=== PATIENT | female | born 1955 | race Caucasian/White ===

== ENCOUNTER 2018-03-23 10:25 | Inpatient (IN) | payer OTHER, BC ==
[2018-03-23] MEDS: NS 1,000 ML IV ×3 (11:09→23:00)
[2018-03-23] MEDS: MORPHINE 4 MG/ML 1ML VIAL/SYRINGE (J2270) IV ×3 (11:33→22:04)
[2018-03-23 12:14] LABS: INR 0.93; PROTHROMBIN TIME 12.5 SECONDS (12.4-14.5)
[2018-03-23 12:36] LABS: BASO % 0.2 % (0.0-1.0); EOS % 0.1 % (0.0-3.0); HEMATOCRIT 34.8 % (36.0-47.0); HEMOGLOBIN 11.2 g/dl (12.0-15.5); IMMATURE GRANULOCYTE % 0.6 % (0-3.0); LYMPH # 1.1 10^3/uL (1.5-4.5); LYMPH % 8.3 % (24.0-44.0); MEAN CORPUSCULAR HEMOGLOBIN 30.7 pg (27.0-33.0); MEAN CORPUSCULAR HGB CONC 32.2 g/dl (32.0-36.5); MEAN CORPUSCULAR VOLUME 95.3 fl (80.0-96.0); MONO # 0.8 10^3/uL (0.0-0.8); MONO % 6.1 % (0.0-5.0); NEUTROPHILS # 10.8 10^3/uL (1.8-7.7); NEUTROPHILS % 84.7 % (36.0-66.0); PLATELET COUNT, AUTOMATED 224 10^3/uL (150-450); RED BLOOD COUNT 3.65 10^6/uL (4.00-5.40); RED CELL DISTRIBUTION WIDTH 12.9 % (11.5-14.5); WHITE BLOOD COUNT 12.7 10^3/uL (4.0-10.0)
[2018-03-23] MEDS ORDERED: ISOVUE-370 76% 100ML VIAL (Q9967) As Ordered (12:38)
[2018-03-23] MEDS: fentaNYL 100 MCG/2 ML INJECTION (J3010) IV ×6 (12:40→20:10)
[2018-03-23 12:56] LABS: ALBUMIN 3.8 GM/DL (3.2-5.2); ALBUMIN/GLOBULIN RATIO 1.31 (1.00-1.93); ALKALINE PHOSPHATASE 108 U/L (45-117); ALT/SGPT 40 U/L (12-78); ANION GAP 9 MEQ/L (8-16); AST/SGOT 70 U/L (7-37); BILIRUBIN,DIRECT 0.2 MG/DL (0.0-0.2); BILIRUBIN,TOTAL 0.6 MG/DL (0.2-1.0); BLOOD UREA NITROGEN 17 MG/DL (7-18); CALCIUM LEVEL 8.8 MG/DL (8.8-10.2); CARBON DIOXIDE LEVEL 23 MEQ/L (21-32); CHLORIDE LEVEL 111 MEQ/L (98-107); CREATININE FOR GFR 0.78 MG/DL (0.55-1.30); GLOMERULAR FILTRATION RATE > 60.0 (>45); GLUCOSE, FASTING 96 MG/DL (70-100); POTASSIUM SERUM 4.7 MEQ/L (3.5-5.1); SODIUM LEVEL 143 MEQ/L (136-145); TOTAL PROTEIN 6.7 GM/DL (6.4-8.2)
[2018-03-23 14:58] LABS: TROPONIN I 0.04 NG/ML (< 0.10)
[2018-03-23 15:14] LABS: CK-MB VALUE MASS 7.8 NG/ML (<3.6); CPK CREATINE PHOSPHOKINASE 441 U/L (26-192); MB/CK RELATIVE INDEX 1.76 (< OR =4)
[2018-03-23] MEDS ORDERED: PERCOCET 5MG/325MG TAB PO ×3 (15:45→20:52)
[2018-03-23] MEDS ORDERED: LR 1,000 ML IV (15:45)
[2018-03-23] MEDS ORDERED: MIRALAX *UNIT DOSE* 17GM PACKET PO (15:45)
[2018-03-23] MEDS: CARVedilol 3.125 MG TAB PO ×2 (16:00→23:01)
[2018-03-23] MEDS: ceFAZolin 2 GM/D5W 50 ML IV BAG (J0690 PER 500MG) As Ordered (16:54)
[2018-03-23] MEDS ORDERED: MIDAZOLAM INJ 2 MG/2 ML VIAL (J2250) As Ordered ×2 (18:27→19:12)
[2018-03-23] MEDS ORDERED: KETAMINE HCL 200 MG/20 ML VIAL As Ordered (19:12)
[2018-03-23] MEDS ORDERED: fentaNYL 100 MCG/2 ML INJECTION (J3010) As Ordered ×3 (19:12→19:56)
[2018-03-23] MEDS ORDERED: PROPOFOL 200 MG/20 ML VIAL As Ordered (19:12)
[2018-03-23] MEDS ORDERED: LIDOCAINE 2% INJ 100 MG/5 ML SDV (FOR ANES.) As Ordered (19:12)
[2018-03-23] MEDS ORDERED: PHENYLephrine HCL 500 MCG/5 ML (100MCG/ML) SYRINGE (J2370) As Ordered (19:13)
[2018-03-23] MEDS ORDERED: PHENYLEPHRINE INJ 10MG/ML VIAL (J2370) As Ordered (19:13)
[2018-03-23] MEDS ORDERED: ePHEDrine SULFATE 25 MG/5 ML(5MG/ML) SYRINGE As Ordered (19:13)
[2018-03-23] MEDS: ONDANSETRON 4MG/2ML VIAL (J2405) IV (19:55)
[2018-03-23] MEDS: PERCOCET 5MG/325MG TAB PO ×2 (19:55→20:25)
[2018-03-23] MEDS ORDERED: ONDANSETRON 4MG/2ML VIAL (J2405) As Ordered (19:56)
[2018-03-23] MEDS ORDERED: PERCOCET 5MG/325MG TAB As Ordered ×2 (19:56→20:25)
[2018-03-23] MEDS: LR 1,000 ML IV (21:00)
[2018-03-23] MEDS ORDERED: METOCLOPRAMIDE INJ 10MG/2ML VIAL (J2765) IV (21:00)
[2018-03-24] MEDS: ceFAZolin SOD 1 GM in D5W MINI-BAG PLUS 50 ML IV ×2 (00:15→08:41)
[2018-03-24] MEDS: MORPHINE 4 MG/ML 1ML VIAL/SYRINGE (J2270) IV ×5 (00:16→15:51)
[2018-03-24] MEDS: LEVOTHYROXINE 75MCG TABLET (0.075MG) PO (05:35)
[2018-03-24] MEDS: PERCOCET 5MG/325MG TAB PO ×3 (06:12→21:05)
[2018-03-24 06:34] LABS: BASO % 0.4 % (0.0-1.0); EOS % 0.2 % (0.0-3.0); HEMATOCRIT 31.4 % (36.0-47.0); HEMOGLOBIN 10.1 g/dl (12.0-15.5); IMMATURE GRANULOCYTE % 0.4 % (0-3.0); LYMPH # 0.8 10^3/uL (1.5-4.5); LYMPH % 15.8 % (24.0-44.0); MEAN CORPUSCULAR HEMOGLOBIN 31.3 pg (27.0-33.0); MEAN CORPUSCULAR HGB CONC 32.2 g/dl (32.0-36.5); MEAN CORPUSCULAR VOLUME 97.2 fl (80.0-96.0); MONO # 0.6 10^3/uL (0.0-0.8); MONO % 11.2 % (0.0-5.0); NEUTROPHILS # 3.8 10^3/uL (1.8-7.7); RED BLOOD COUNT 3.23 10^6/uL (4.00-5.40); WHITE BLOOD COUNT 5.3 10^3/uL (4.0-10.0)
[2018-03-24 06:55] LABS: ANION GAP 7 MEQ/L (8-16); BLOOD UREA NITROGEN 9 MG/DL (7-18); CALCIUM LEVEL 8.3 MG/DL (8.8-10.2); CARBON DIOXIDE LEVEL 26 MEQ/L (21-32); CHLORIDE LEVEL 109 MEQ/L (98-107); CHOLESTEROL LEVEL 173 MG/DL (<200); CHOLESTEROL RISK RATIO 2.246 (<5); CREATININE FOR GFR 0.68 MG/DL (0.55-1.30); GLOMERULAR FILTRATION RATE > 60.0 (>45); GLUCOSE, FASTING 96 MG/DL (70-100); HDL CHOLESTEROL 77 MG/DL (>40); LDL CHOLESTEROL 59.2 MG/DL (<100); MAGNESIUM LEVEL 1.8 MG/DL (1.8-2.4); NON-HDL-C 96 MG/DL; POS COUNT POS FLAG; POTASSIUM SERUM 4.2 MEQ/L (3.5-5.1); SODIUM LEVEL 142 MEQ/L (136-145); TRIGLYCERIDES LEVEL 184 MG/DL (<150)
[2018-03-24] MEDS: ENOXAPARIN 40 MG/0.4 ML SYRINGE (J1650) SC (08:41)
[2018-03-24] MEDS: ALLOPURINOL 300 MG TAB PO (08:41)
[2018-03-24] MEDS: LISINOPRIL 20 MG TAB PO (08:42)
[2018-03-24] MEDS: CARVedilol 3.125 MG TAB PO ×2 (08:42→21:03)
[2018-03-24] MEDS: KETOROLAC 30 MG/ML VIAL (J1885) IV ×2 (09:57→17:17)
[2018-03-24] MEDS: METHOCARBAMOL 750 MG TAB PO ×2 (11:50→21:03)
[2018-03-24] MEDS: NS 1,000 ML IV (11:50)
[2018-03-24] MEDS: SENOKOT S TAB PO (12:19)
[2018-03-24 18:40] LABS: KETONE, URINE AUTO RFX 1+ mg/dL (NEGATIVE); LEUKOCYTE ESTERASE UR AUTO RFX NEGATIVE (NEGATIVE); MUCUS, URINE RFX SMALL (NEGATIVE); NITRITE, URINE AUTO RFX NEGATIVE (NEGATIVE); RBC, URINE AUTO RFX 2 /HPF (0-3); SPECIFIC GRAVITY UR AUTO RFX 1.013 (1.002-1.035); SQUAM EPITHELIAL CELL UR AURFX 0 /HPF (0-6); WBC, URINE AUTO RFX 1 /HPF (0-3)
[2018-03-25] MEDS: NS 1,000 ML IV (01:22)
[2018-03-25] MEDS: KETOROLAC 30 MG/ML VIAL (J1885) IV ×2 (02:26→11:11)
[2018-03-25] MEDS: LEVOTHYROXINE 75MCG TABLET (0.075MG) PO (05:42)
[2018-03-25] MEDS: PERCOCET 5MG/325MG TAB PO (06:46)
[2018-03-25] MEDS: ENOXAPARIN 40 MG/0.4 ML SYRINGE (J1650) SC (08:31)
[2018-03-25] MEDS: ALLOPURINOL 300 MG TAB PO (08:31)
[2018-03-25] MEDS: CARVedilol 3.125 MG TAB PO ×2 (08:31→21:59)
[2018-03-25] MEDS: LISINOPRIL 20 MG TAB PO (08:31)
[2018-03-25] MEDS: METHOCARBAMOL 750 MG TAB PO ×2 (08:31→21:56)
[2018-03-25 08:33] LABS: HEMATOCRIT 26.5 % (36.0-47.0); HEMOGLOBIN 8.5 g/dl (12.0-15.5); MEAN CORPUSCULAR HGB CONC 32.1 g/dl (32.0-36.5); MEAN CORPUSCULAR VOLUME 96.7 fl (80.0-96.0); PLATELET COUNT, AUTOMATED 139 10^3/uL (150-450); RED BLOOD COUNT 2.74 10^6/uL (4.00-5.40); RED CELL DISTRIBUTION WIDTH 12.9 % (11.5-14.5); WHITE BLOOD COUNT 6.2 10^3/uL (4.0-10.0)
[2018-03-25 08:51] LABS: ANION GAP 9 MEQ/L (8-16); BLOOD UREA NITROGEN 10 MG/DL (7-18); CALCIUM LEVEL 7.3 MG/DL (8.8-10.2); CARBON DIOXIDE LEVEL 23 MEQ/L (21-32); CHLORIDE LEVEL 112 MEQ/L (98-107); GLOMERULAR FILTRATION RATE > 60.0 (>45); GLUCOSE, FASTING 161 MG/DL (70-100); MAGNESIUM LEVEL 1.6 MG/DL (1.8-2.4); POTASSIUM SERUM 3.8 MEQ/L (3.5-5.1); SODIUM LEVEL 144 MEQ/L (136-145)
[2018-03-25] MEDS: MAG SULF 1GM/100ML (MAG RUN) 1 GM in APPROPRIATE DILUENT 1 EA IV (10:41)
[2018-03-25] MEDS: SENOKOT S TAB PO ×2 (11:56→21:56)
[2018-03-25] MEDS: ANEXSIA, NORCO 7.5MG/325MG TABLET(HYDROCODONE/APAP) PO ×2 (13:40→18:58)
[2018-03-25] MEDS: IBUPROFEN 800 MG TAB PO (15:24)
[2018-03-26] MEDS: ANEXSIA, NORCO 7.5MG/325MG TABLET(HYDROCODONE/APAP) PO ×5 (01:20→17:36)
[2018-03-26 05:52] LABS: MEAN CORPUSCULAR HEMOGLOBIN 30.9 pg (27.0-33.0); MEAN CORPUSCULAR VOLUME 96.5 fl (80.0-96.0); PLATELET COUNT, AUTOMATED 148 10^3/uL (150-450); RED BLOOD COUNT 2.59 10^6/uL (4.00-5.40); RED CELL DISTRIBUTION WIDTH 12.9 % (11.5-14.5); WHITE BLOOD COUNT 4.8 10^3/uL (4.0-10.0)
[2018-03-26 06:15] LABS: ANION GAP 5 MEQ/L (8-16); BLOOD UREA NITROGEN 10 MG/DL (7-18); CALCIUM LEVEL 8.2 MG/DL (8.8-10.2); CARBON DIOXIDE LEVEL 27 MEQ/L (21-32); CHLORIDE LEVEL 112 MEQ/L (98-107); GLOMERULAR FILTRATION RATE > 60.0 (>45); GLUCOSE, FASTING 91 MG/DL (70-100); MAGNESIUM LEVEL 2.2 MG/DL (1.8-2.4); SODIUM LEVEL 144 MEQ/L (136-145)
[2018-03-26] MEDS: LEVOTHYROXINE 75MCG TABLET (0.075MG) PO (06:35)
[2018-03-26] MEDS ORDERED: MOM 30ML SUSPENSION UDC PO (08:45)
[2018-03-26] MEDS: SENOKOT S TAB PO ×2 (08:58→21:44)
[2018-03-26] MEDS: METHOCARBAMOL 750 MG TAB PO ×2 (08:58→21:44)
[2018-03-26] MEDS: CARVedilol 3.125 MG TAB PO ×3 (08:59→21:45)
[2018-03-26] MEDS: ALLOPURINOL 300 MG TAB PO (09:00)
[2018-03-26] MEDS: ENOXAPARIN 40 MG/0.4 ML SYRINGE (J1650) SC (09:00)
[2018-03-26] MEDS: LISINOPRIL 20 MG TAB PO (09:03)
[2018-03-26 13:01] LABS: IMMEDIATE SPIN CROSSMATCH 1 2
[2018-03-26 15:46] LABS: INR 0.92; PROTHROMBIN TIME 12.4 SECONDS (12.4-14.5)
[2018-03-26 15:47] LABS: PARTIAL THROMBOPLASTIN TIME 26.9 SECONDS (26.8-37.9)
[2018-03-26 16:03] LABS: ALBUMIN 2.5 GM/DL (3.2-5.2); ALBUMIN/GLOBULIN RATIO 0.83 (1.00-1.93); ALKALINE PHOSPHATASE 73 U/L (45-117); ALT/SGPT 18 U/L (12-78); ANION GAP 7 MEQ/L (8-16); AST/SGOT 21 U/L (7-37); BILIRUBIN,TOTAL 0.3 MG/DL (0.2-1.0); BLOOD UREA NITROGEN 10 MG/DL (7-18); CALCIUM LEVEL 7.7 MG/DL (8.8-10.2); CARBON DIOXIDE LEVEL 27 MEQ/L (21-32); CHLORIDE LEVEL 110 MEQ/L (98-107); CK-MB VALUE MASS < 1.0 NG/ML (<3.6); CPK CREATINE PHOSPHOKINASE 227 U/L (26-192); CREATININE FOR GFR 0.75 MG/DL (0.55-1.30); GLOMERULAR FILTRATION RATE > 60.0 (>45); GLUCOSE, FASTING 139 MG/DL (70-100); MAGNESIUM LEVEL 1.7 MG/DL (1.8-2.4); MB/CK RELATIVE INDEX 0.44 (< OR =4); POTASSIUM SERUM 3.8 MEQ/L (3.5-5.1); SODIUM LEVEL 144 MEQ/L (136-145); TOTAL PROTEIN 5.5 GM/DL (6.4-8.2); TROPONIN I 0.02 NG/ML (< 0.10)
[2018-03-26 18:10] LABS: BASO % 0.2 % (0.0-1.0); EOS % 0.6 % (0.0-3.0); HEMATOCRIT 27.5 % (36.0-47.0); HEMOGLOBIN 9.2 g/dl (12.0-15.5); IMMATURE GRANULOCYTE % 0.2 % (0-3.0); LYMPH # 1.2 10^3/uL (1.5-4.5); LYMPH % 18.1 % (24.0-44.0); MEAN CORPUSCULAR HEMOGLOBIN 31.8 pg (27.0-33.0); MEAN CORPUSCULAR HGB CONC 33.5 g/dl (32.0-36.5); MEAN CORPUSCULAR VOLUME 95.2 fl (80.0-96.0); MONO # 0.6 10^3/uL (0.0-0.8); MONO % 9.3 % (0.0-5.0); NEUTROPHILS # 4.6 10^3/uL (1.8-7.7); NEUTROPHILS % 71.6 % (36.0-66.0); PLATELET COUNT, AUTOMATED 175 10^3/uL (150-450); RED BLOOD COUNT 2.89 10^6/uL (4.00-5.40); RED CELL DISTRIBUTION WIDTH 12.8 % (11.5-14.5); WHITE BLOOD COUNT 6.5 10^3/uL (4.0-10.0)
[2018-03-26] MEDS ORDERED: NORCO, ANEXSIA 5/325MG TABLET (HYDROcodone/ACETAMINOPHEN) PO (18:30)
[2018-03-26] MEDS: MAG SULF 1GM/100ML (MAG RUN) 1 GM in APPROPRIATE DILUENT 1 EA IV (19:40)
[2018-03-26 22:11] LABS: REASON FOR REVIEW ANEMIA / RBC MORPH; SLIDE REVIEW Report; SOURCE PERIPHERAL SMEAR
[2018-03-26 22:33] LABS: CK-MB VALUE MASS < 1.0 NG/ML (<3.6); CPK CREATINE PHOSPHOKINASE 187 U/L (26-192); MB/CK RELATIVE INDEX 0.53 (< OR =4); TROPONIN I 0.03 NG/ML (< 0.10)
[2018-03-27] MEDS: ANEXSIA, NORCO 7.5MG/325MG TABLET(HYDROCODONE/APAP) PO ×5 (01:26→21:12)
[2018-03-27] MEDS: LEVOTHYROXINE 75MCG TABLET (0.075MG) PO (05:42)
[2018-03-27 05:56] LABS: HEMOGLOBIN 8.5 g/dl (12.0-15.5); MEAN CORPUSCULAR HEMOGLOBIN 31.1 pg (27.0-33.0); MEAN CORPUSCULAR HGB CONC 32.7 g/dl (32.0-36.5); MEAN CORPUSCULAR VOLUME 95.2 fl (80.0-96.0); PLATELET COUNT, AUTOMATED 199 10^3/uL (150-450); RED BLOOD COUNT 2.73 10^6/uL (4.00-5.40); RED CELL DISTRIBUTION WIDTH 12.8 % (11.5-14.5); WHITE BLOOD COUNT 5.2 10^3/uL (4.0-10.0)
[2018-03-27 06:17] LABS: ANION GAP 5 MEQ/L (8-16); BLOOD UREA NITROGEN 9 MG/DL (7-18); CALCIUM LEVEL 8.2 MG/DL (8.8-10.2); CARBON DIOXIDE LEVEL 28 MEQ/L (21-32); CHLORIDE LEVEL 112 MEQ/L (98-107); CREATININE FOR GFR 0.67 MG/DL (0.55-1.30); GLOMERULAR FILTRATION RATE > 60.0 (>45); GLUCOSE, FASTING 85 MG/DL (70-100); MAGNESIUM LEVEL 2.1 MG/DL (1.8-2.4); POTASSIUM SERUM 3.8 MEQ/L (3.5-5.1); SODIUM LEVEL 145 MEQ/L (136-145)
[2018-03-27] MEDS: METHOCARBAMOL 750 MG TAB PO ×2 (08:05→21:11)
[2018-03-27] MEDS: ALLOPURINOL 300 MG TAB PO (08:06)
[2018-03-27] MEDS: SENOKOT S TAB PO ×2 (08:07→21:11)
[2018-03-27] MEDS: CARVedilol 3.125 MG TAB PO ×2 (08:07→21:12)
[2018-03-27] MEDS: LISINOPRIL 20 MG TAB PO (08:07)
[2018-03-27] MEDS: ENOXAPARIN 40 MG/0.4 ML SYRINGE (J1650) SC (08:08)
[2018-03-27 13:47] LABS: HEMATOCRIT 27.3 % (36.0-47.0); HEMOGLOBIN 8.9 g/dl (12.0-15.5)
[2018-03-27 17:40] LABS: APPEARANCE, URINE CLEAR (CLEAR); BACTERIA, URINE AUTO NEGATIVE (NEGATIVE); BILIRUBIN, URINE AUTO NEGATIVE (NEGATIVE); BLOOD, URINE BLOOD NEGATIVE (NEGATIVE); COLOR, URINE YELLOW (YELLOW); GLUCOSE, URINE (UA) AUTO NEGATIVE (NEGATIVE); KETONE, URINE AUTO TRACE mg/dL (NEGATIVE); LEUKOCYTE ESTERASE, URINE AUTO NEGATIVE (NEGATIVE); NITRITE, URINE AUTO NEGATIVE (NEGATIVE); PROTEIN, URINE AUTO NEGATIVE (NEGATIVE); RBC, URINE AUTO 0 /HPF (0-3); SPECIFIC GRAVITY URINE AUTO 1.011 (1.002-1.035); SQUAMOUS EPITHELIAL CELL UR AU 0 /HPF (0-6); UROBILINOGEN, URINE AUTO 0.2 mg/dL (0.0-2.0); WBC, URINE AUTO 0 /HPF (0-3)
[2018-03-28] MEDS: ANEXSIA, NORCO 7.5MG/325MG TABLET(HYDROCODONE/APAP) PO ×4 (04:32→22:06)
[2018-03-28] MEDS: LEVOTHYROXINE 75MCG TABLET (0.075MG) PO (05:27)
[2018-03-28 06:14] LABS: HEMATOCRIT 26.2 % (36.0-47.0); HEMOGLOBIN 8.6 g/dl (12.0-15.5); MEAN CORPUSCULAR HEMOGLOBIN 30.9 pg (27.0-33.0); MEAN CORPUSCULAR HGB CONC 32.8 g/dl (32.0-36.5); MEAN CORPUSCULAR VOLUME 94.2 fl (80.0-96.0); PLATELET COUNT, AUTOMATED 220 10^3/uL (150-450); RED BLOOD COUNT 2.78 10^6/uL (4.00-5.40); RED CELL DISTRIBUTION WIDTH 12.7 % (11.5-14.5); WHITE BLOOD COUNT 4.4 10^3/uL (4.0-10.0)
[2018-03-28 06:33] LABS: ANION GAP 5 MEQ/L (8-16); BLOOD UREA NITROGEN 12 MG/DL (7-18); CALCIUM LEVEL 8.2 MG/DL (8.8-10.2); CARBON DIOXIDE LEVEL 29 MEQ/L (21-32); CHLORIDE LEVEL 109 MEQ/L (98-107); GLOMERULAR FILTRATION RATE > 60.0 (>45); GLUCOSE, FASTING 96 MG/DL (70-100); MAGNESIUM LEVEL 1.9 MG/DL (1.8-2.4); POTASSIUM SERUM 3.8 MEQ/L (3.5-5.1); SODIUM LEVEL 143 MEQ/L (136-145)
[2018-03-28] MEDS: ONDANSETRON 4MG/2ML VIAL (J2405) IV (08:21)
[2018-03-28] MEDS: IBUPROFEN 800 MG TAB PO (08:22)
[2018-03-28] MEDS: ALLOPURINOL 300 MG TAB PO (08:27)
[2018-03-28] MEDS: SENOKOT S TAB PO ×2 (08:27→21:32)
[2018-03-28] MEDS: CARVedilol 3.125 MG TAB PO ×2 (08:27→21:32)
[2018-03-28] MEDS: LISINOPRIL 20 MG TAB PO (08:27)
[2018-03-28] MEDS: METHOCARBAMOL 750 MG TAB PO ×2 (08:27→21:31)
[2018-03-28] MEDS: MAGNESIUM CITRATE 300 ML BTL PO (14:07)
[2018-03-29] MEDS: ANEXSIA, NORCO 7.5MG/325MG TABLET(HYDROCODONE/APAP) PO ×2 (04:34→09:04)
[2018-03-29] MEDS: LEVOTHYROXINE 75MCG TABLET (0.075MG) PO (05:56)
[2018-03-29 06:01] LABS: HEMATOCRIT 25.4 % (36.0-47.0); HEMOGLOBIN 8.2 g/dl (12.0-15.5); MEAN CORPUSCULAR HEMOGLOBIN 30.7 pg (27.0-33.0); MEAN CORPUSCULAR HGB CONC 32.3 g/dl (32.0-36.5); MEAN CORPUSCULAR VOLUME 95.1 fl (80.0-96.0); PLATELET COUNT, AUTOMATED 229 10^3/uL (150-450); RED BLOOD COUNT 2.67 10^6/uL (4.00-5.40)
[2018-03-29 06:23] LABS: ANION GAP 6 MEQ/L (8-16); BLOOD UREA NITROGEN 14 MG/DL (7-18); CALCIUM LEVEL 8.2 MG/DL (8.8-10.2); CARBON DIOXIDE LEVEL 28 MEQ/L (21-32); CHLORIDE LEVEL 108 MEQ/L (98-107); CREATININE FOR GFR 0.64 MG/DL (0.55-1.30); GLOMERULAR FILTRATION RATE > 60.0 (>45); GLUCOSE, FASTING 96 MG/DL (70-100); MAGNESIUM LEVEL 2.1 MG/DL (1.8-2.4); POTASSIUM SERUM 4.1 MEQ/L (3.5-5.1); SODIUM LEVEL 142 MEQ/L (136-145)
[2018-03-29] MEDS: SENOKOT S TAB PO (08:59)
[2018-03-29] MEDS: LISINOPRIL 20 MG TAB PO (08:59)
[2018-03-29] MEDS: CARVedilol 3.125 MG TAB PO (09:00)
[2018-03-29] MEDS: ALLOPURINOL 300 MG TAB PO (09:00)
[2018-03-29] MEDS: METHOCARBAMOL 750 MG TAB PO (09:00)
[2018-03-29] MEDS: MAGNESIUM CITRATE 300 ML BTL PO (09:00)
== END 2018-03-29 10:37 | DRG 313 ==
LOC: M ED 10:25 → M ED INP 14:29 → M MSPAV 21:06
PROC: 0SSF04Z Reposition Right Ankle Joint with Internal Fixation Device, Open Approach (ICD-10-PCS; principal; 2018-03-23 16:00)
PROC: 30233N1 Transfusion of Nonautologous Red Blood Cells into Peripheral Vein, Percutaneous Approach (ICD-10-PCS; 2018-03-23 16:42)
DX: S82.451A Displaced comminuted fracture of shaft of right fibula, initial encounter for closed fracture (principal); G93.40 Encephalopathy, unspecified; S22.20XA Unspecified fracture of sternum, initial encounter for closed fracture; D62 Acute posthemorrhagic anemia; S22.42XA Multiple fractures of ribs, left side, initial encounter for closed fracture; S52.571A Other intraarticular fracture of lower end of right radius, initial encounter for closed fracture; E03.9 Hypothyroidism, unspecified; I10 Essential (primary) hypertension; M10.9 Gout, unspecified; Z90.710 Acquired absence of both cervix and uterus; Z98.84 Bariatric surgery status; Z87.891 Personal history of nicotine dependence; Z79.899 Other long term (current) drug therapy; Z90.49 Acquired absence of other specified parts of digestive tract; V49.50XA Passenger injured in collision with unspecified motor vehicles in traffic accident, initial encounter; Y92.410 Unspecified street and highway as the place of occurrence of the external cause; Y93.89 Activity, other specified

== ENCOUNTER 2018-03-29 10:42 | Inpatient (IN) | payer OTHER, MEDICARE, BC ==
[~2018-03-29 10:42] MED LIST: ALLOPURINOL 300 MG TAB PO; ANEXSIA, NORCO 7.5MG/325MG TABLET(HYDROCODONE/APAP) PO; BISACODYL 10 MG SUPP PR; BISACODYL 5 MG TAB PO; ENOXAPARIN 40 MG/0.4 ML SYRINGE (J1650) SC; FERROUS GLUCONATE 324 MG TAB PO; FLEET ENEMA PR; IBUPROFEN 800 MG TAB PO; ISOVUE-370 76% 100ML VIAL (Q9967) As Ordered; LEVOTHYROXINE 75MCG TABLET (0.075MG) PO; LISINOPRIL 20 MG TAB PO; METHOCARBAMOL 750 MG TAB PO; MIRALAX *UNIT DOSE* 17GM PACKET PO; ONDANSETRON 4 MG TAB (S0181) PO; ONDANSETRON 4MG/2ML VIAL (J2405) IM; PANTOPRAZOLE 40MG TAB (PROTONIX) PO; PROHANCE 279.3MG/ML 15ML VIAL (A9576) As Ordered; SENOKOT S TAB PO
[2018-03-29] MEDS ORDERED: BISACODYL 10 MG SUPP PR (12:00)
[2018-03-29] MEDS ORDERED: BISACODYL 5 MG TAB PO (12:00)
[2018-03-29] MEDS ORDERED: ONDANSETRON 4MG/2ML VIAL (J2405) IM (12:15)
[2018-03-29] MEDS ORDERED: ONDANSETRON 4 MG TAB (S0181) PO (12:15)
[2018-03-29] MEDS ORDERED: FLEET ENEMA PR (12:15)
[2018-03-29] MEDS: NORCO, ANEXSIA 5/325MG TABLET (HYDROcodone/ACETAMINOPHEN) PO ×3 (12:16→20:28)
[2018-03-29] MEDS: CARVedilol 3.125 MG TAB PO (20:28)
[2018-03-29] MEDS: SENOKOT S TAB PO (20:28)
[2018-03-29] MEDS: METHOCARBAMOL 750 MG TAB PO (20:28)
[2018-03-30] MEDS: NORCO, ANEXSIA 5/325MG TABLET (HYDROcodone/ACETAMINOPHEN) PO ×5 (00:47→20:55)
[2018-03-30] MEDS: LEVOTHYROXINE 75MCG TABLET (0.075MG) PO (04:41)
[2018-03-30 08:15] LABS: HEMATOCRIT 29.1 % (36.0-47.0); HEMOGLOBIN 9.3 g/dl (12.0-15.5); MEAN CORPUSCULAR HEMOGLOBIN 30.8 pg (27.0-33.0); MEAN CORPUSCULAR VOLUME 96.4 fl (80.0-96.0); PLATELET COUNT, AUTOMATED 308 10^3/uL (150-450); RED BLOOD COUNT 3.02 10^6/uL (4.00-5.40); RED CELL DISTRIBUTION WIDTH 13.1 % (11.5-14.5); WHITE BLOOD COUNT 4.8 10^3/uL (4.0-10.0)
[2018-03-30 08:36] LABS: ALBUMIN 2.7 GM/DL (3.2-5.2); ALBUMIN/GLOBULIN RATIO 0.73 (1.00-1.93); ALKALINE PHOSPHATASE 86 U/L (45-117); ALT/SGPT 34 U/L (12-78); ANION GAP 3 MEQ/L (8-16); AST/SGOT 57 U/L (7-37); BILIRUBIN,TOTAL 0.3 MG/DL (0.2-1.0); BLOOD UREA NITROGEN 12 MG/DL (7-18); CALCIUM LEVEL 8.5 MG/DL (8.8-10.2); CARBON DIOXIDE LEVEL 35 MEQ/L (21-32); CHLORIDE LEVEL 103 MEQ/L (98-107); CREATININE FOR GFR 0.69 MG/DL (0.55-1.30); GLOMERULAR FILTRATION RATE > 60.0 (>45); GLUCOSE, FASTING 95 MG/DL (70-100); POTASSIUM SERUM 3.9 MEQ/L (3.5-5.1); SODIUM LEVEL 141 MEQ/L (136-145); TOTAL PROTEIN 6.4 GM/DL (6.4-8.2)
[2018-03-30] MEDS: PREVNAR 13 VACCINE SYRINGE (CPT CODE:90670) IM (08:36)
[2018-03-30] MEDS: METHOCARBAMOL 750 MG TAB PO ×2 (08:37→20:54)
[2018-03-30] MEDS: CARVedilol 3.125 MG TAB PO ×2 (08:37→20:54)
[2018-03-30] MEDS: FERROUS GLUCONATE 324 MG TAB PO (08:37)
[2018-03-30] MEDS: PANTOPRAZOLE 40MG TAB (PROTONIX) PO (08:37)
[2018-03-30] MEDS: ALLOPURINOL 300 MG TAB PO (08:37)
[2018-03-30] MEDS: LISINOPRIL 20 MG TAB PO (08:37)
[2018-03-30] MEDS: MIRALAX *UNIT DOSE* 17GM PACKET PO (08:38)
[2018-03-30] MEDS: SENOKOT S TAB PO ×2 (08:38→20:54)
[2018-03-30] MEDS: IBUPROFEN 800 MG TAB PO (16:21)
[2018-03-31] MEDS: NORCO, ANEXSIA 5/325MG TABLET (HYDROcodone/ACETAMINOPHEN) PO ×4 (00:51→19:34)
[2018-03-31] MEDS: LEVOTHYROXINE 75MCG TABLET (0.075MG) PO (05:01)
[2018-03-31 06:54] LABS: BASO % 0.4 % (0.0-1.0); EOS # 0.1 10^3/uL (0.0-0.50); EOS % 1.6 % (0.0-3.0); HEMATOCRIT 26.6 % (36.0-47.0); HEMOGLOBIN 8.4 g/dl (12.0-15.5); IMMATURE GRANULOCYTE % 0.2 % (0-3.0); LYMPH # 1.1 10^3/uL (1.5-4.5); LYMPH % 24.1 % (24.0-44.0); MEAN CORPUSCULAR HEMOGLOBIN 30.9 pg (27.0-33.0); MEAN CORPUSCULAR HGB CONC 31.6 g/dl (32.0-36.5); MEAN CORPUSCULAR VOLUME 97.8 fl (80.0-96.0); MONO # 0.4 10^3/uL (0.0-0.8); MONO % 9.4 % (0.0-5.0); NEUTROPHILS # 2.9 10^3/uL (1.8-7.7); NEUTROPHILS % 64.3 % (36.0-66.0); PLATELET COUNT, AUTOMATED 275 10^3/uL (150-450); RED BLOOD COUNT 2.72 10^6/uL (4.00-5.40); RED CELL DISTRIBUTION WIDTH 13.2 % (11.5-14.5); WHITE BLOOD COUNT 4.5 10^3/uL (4.0-10.0)
[2018-03-31] MEDS: MIRALAX *UNIT DOSE* 17GM PACKET PO (09:00)
[2018-03-31] MEDS: SENOKOT S TAB PO ×2 (09:00→21:00)
[2018-03-31] MEDS: ALLOPURINOL 300 MG TAB PO (09:02)
[2018-03-31] MEDS: METHOCARBAMOL 750 MG TAB PO ×2 (09:02→21:06)
[2018-03-31] MEDS: PANTOPRAZOLE 40MG TAB (PROTONIX) PO (09:02)
[2018-03-31] MEDS: LISINOPRIL 20 MG TAB PO (09:02)
[2018-03-31] MEDS: CARVedilol 3.125 MG TAB PO ×2 (09:02→21:07)
[2018-03-31] MEDS: FERROUS GLUCONATE 324 MG TAB PO (09:02)
[2018-03-31] MEDS: IBUPROFEN 800 MG TAB PO ×2 (09:03→15:52)
[2018-04-01] MEDS: NORCO, ANEXSIA 5/325MG TABLET (HYDROcodone/ACETAMINOPHEN) PO ×5 (01:13→20:42)
[2018-04-01] MEDS: LEVOTHYROXINE 75MCG TABLET (0.075MG) PO (05:40)
[2018-04-01] MEDS: ALLOPURINOL 300 MG TAB PO (07:33)
[2018-04-01] MEDS: SENOKOT S TAB PO ×2 (07:33→20:41)
[2018-04-01] MEDS: MIRALAX *UNIT DOSE* 17GM PACKET PO (07:33)
[2018-04-01] MEDS: CARVedilol 3.125 MG TAB PO ×2 (07:33→20:41)
[2018-04-01] MEDS: PANTOPRAZOLE 40MG TAB (PROTONIX) PO (07:33)
[2018-04-01] MEDS: FERROUS GLUCONATE 324 MG TAB PO (07:34)
[2018-04-01] MEDS: LISINOPRIL 20 MG TAB PO (07:34)
[2018-04-01] MEDS: METHOCARBAMOL 750 MG TAB PO ×2 (07:35→20:40)
[2018-04-01 07:37] LABS: BASO % 0.4 % (0.0-1.0); EOS # 0.1 10^3/uL (0.0-0.50); EOS % 1.2 % (0.0-3.0); HEMATOCRIT 28.1 % (36.0-47.0); HEMOGLOBIN 8.9 g/dl (12.0-15.5); IMMATURE GRANULOCYTE % 0.4 % (0-3.0); LYMPH % 19.9 % (24.0-44.0); MEAN CORPUSCULAR HEMOGLOBIN 30.6 pg (27.0-33.0); MEAN CORPUSCULAR HGB CONC 31.7 g/dl (32.0-36.5); MEAN CORPUSCULAR VOLUME 96.6 fl (80.0-96.0); MONO # 0.5 10^3/uL (0.0-0.8); MONO % 10.5 % (0.0-5.0); NEUTROPHILS # 3.3 10^3/uL (1.8-7.7); NEUTROPHILS % 67.6 % (36.0-66.0); PLATELET COUNT, AUTOMATED 308 10^3/uL (150-450); RED BLOOD COUNT 2.91 10^6/uL (4.00-5.40); RED CELL DISTRIBUTION WIDTH 13.2 % (11.5-14.5); WHITE BLOOD COUNT 4.9 10^3/uL (4.0-10.0)
[2018-04-01 08:02] LABS: ANION GAP 5 MEQ/L (8-16); BLOOD UREA NITROGEN 13 MG/DL (7-18); CALCIUM LEVEL 8.3 MG/DL (8.8-10.2); CARBON DIOXIDE LEVEL 32 MEQ/L (21-32); CHLORIDE LEVEL 107 MEQ/L (98-107); CREATININE FOR GFR 0.72 MG/DL (0.55-1.30); GLOMERULAR FILTRATION RATE > 60.0 (>45); GLUCOSE, FASTING 83 MG/DL (70-100); POTASSIUM SERUM 4.1 MEQ/L (3.5-5.1); SODIUM LEVEL 144 MEQ/L (136-145)
[2018-04-02] MEDS: NORCO, ANEXSIA 5/325MG TABLET (HYDROcodone/ACETAMINOPHEN) PO ×4 (01:54→20:02)
[2018-04-02] MEDS: LEVOTHYROXINE 75MCG TABLET (0.075MG) PO (05:46)
[2018-04-02 07:04] LABS: BASO % 0.4 % (0.0-1.0); EOS # 0.1 10^3/uL (0.0-0.50); EOS % 1.8 % (0.0-3.0); HEMOGLOBIN 8.7 g/dl (12.0-15.5); IMMATURE GRANULOCYTE % 0.4 % (0-3.0); LYMPH # 1.4 10^3/uL (1.5-4.5); LYMPH % 27.7 % (24.0-44.0); MEAN CORPUSCULAR HEMOGLOBIN 31.1 pg (27.0-33.0); MEAN CORPUSCULAR HGB CONC 32.2 g/dl (32.0-36.5); MEAN CORPUSCULAR VOLUME 96.4 fl (80.0-96.0); MONO # 0.6 10^3/uL (0.0-0.8); MONO % 11.3 % (0.0-5.0); NEUTROPHILS # 2.9 10^3/uL (1.8-7.7); NEUTROPHILS % 58.4 % (36.0-66.0); PLATELET COUNT, AUTOMATED 342 10^3/uL (150-450); RED CELL DISTRIBUTION WIDTH 13.2 % (11.5-14.5)
[2018-04-02] MEDS: MIRALAX *UNIT DOSE* 17GM PACKET PO ×2 (09:00→09:19)
[2018-04-02] MEDS: LISINOPRIL 20 MG TAB PO (09:20)
[2018-04-02] MEDS: CARVedilol 3.125 MG TAB PO ×2 (09:21→20:05)
[2018-04-02] MEDS: ALLOPURINOL 300 MG TAB PO (09:21)
[2018-04-02] MEDS: METHOCARBAMOL 750 MG TAB PO ×2 (09:21→20:02)
[2018-04-02] MEDS: PANTOPRAZOLE 40MG TAB (PROTONIX) PO (09:21)
[2018-04-02] MEDS: SENOKOT S TAB PO ×2 (09:21→20:02)
[2018-04-02] MEDS: FERROUS GLUCONATE 324 MG TAB PO (09:21)
[2018-04-02] MEDS: IBUPROFEN 800 MG TAB PO (09:39)
[2018-04-03] MEDS: NORCO, ANEXSIA 5/325MG TABLET (HYDROcodone/ACETAMINOPHEN) PO ×7 (01:50→21:18)
[2018-04-03] MEDS: LEVOTHYROXINE 75MCG TABLET (0.075MG) PO (05:20)
[2018-04-03 07:04] LABS: BASO % 0.4 % (0.0-1.0); EOS # 0.1 10^3/uL (0.0-0.50); EOS % 1.7 % (0.0-3.0); HEMATOCRIT 27.8 % (36.0-47.0); IMMATURE GRANULOCYTE % 0.2 % (0-3.0); LYMPH % 21.5 % (24.0-44.0); MEAN CORPUSCULAR HGB CONC 32.4 g/dl (32.0-36.5); MEAN CORPUSCULAR VOLUME 95.9 fl (80.0-96.0); MONO # 0.5 10^3/uL (0.0-0.8); MONO % 11.2 % (0.0-5.0); PLATELET COUNT, AUTOMATED 355 10^3/uL (150-450); RED CELL DISTRIBUTION WIDTH 13.2 % (11.5-14.5); WHITE BLOOD COUNT 4.7 10^3/uL (4.0-10.0)
[2018-04-03] MEDS: LISINOPRIL 20 MG TAB PO (08:20)
[2018-04-03] MEDS: PANTOPRAZOLE 40MG TAB (PROTONIX) PO (08:20)
[2018-04-03] MEDS: ALLOPURINOL 300 MG TAB PO (08:20)
[2018-04-03] MEDS: FERROUS GLUCONATE 324 MG TAB PO (08:20)
[2018-04-03] MEDS: METHOCARBAMOL 750 MG TAB PO ×2 (08:20→21:17)
[2018-04-03] MEDS: CARVedilol 3.125 MG TAB PO ×2 (08:20→21:17)
[2018-04-03] MEDS: SENOKOT S TAB PO ×2 (08:21→21:00)
[2018-04-03] MEDS: MIRALAX *UNIT DOSE* 17GM PACKET PO (08:21)
[2018-04-03] MEDS ORDERED: NORCO, ANEXSIA 5/325MG TABLET (HYDROcodone/ACETAMINOPHEN) PO (09:45)
[2018-04-04] MEDS: NORCO, ANEXSIA 5/325MG TABLET (HYDROcodone/ACETAMINOPHEN) PO ×6 (00:24→20:46)
[2018-04-04] MEDS: LEVOTHYROXINE 75MCG TABLET (0.075MG) PO (06:24)
[2018-04-04] MEDS: ALLOPURINOL 300 MG TAB PO (08:53)
[2018-04-04] MEDS: FERROUS GLUCONATE 324 MG TAB PO (08:54)
[2018-04-04] MEDS: CARVedilol 3.125 MG TAB PO ×2 (08:54→20:47)
[2018-04-04] MEDS: PANTOPRAZOLE 40MG TAB (PROTONIX) PO (08:54)
[2018-04-04] MEDS: SENOKOT S TAB PO ×2 (08:54→20:47)
[2018-04-04] MEDS: LISINOPRIL 20 MG TAB PO (08:55)
[2018-04-04] MEDS: IBUPROFEN 800 MG TAB PO (08:55)
[2018-04-04] MEDS: MIRALAX *UNIT DOSE* 17GM PACKET PO (08:56)
[2018-04-04] MEDS: METHOCARBAMOL 750 MG TAB PO ×2 (08:56→20:46)
[2018-04-05] MEDS: NORCO, ANEXSIA 5/325MG TABLET (HYDROcodone/ACETAMINOPHEN) PO ×4 (00:03→09:58)
[2018-04-05] MEDS: LEVOTHYROXINE 75MCG TABLET (0.075MG) PO (06:27)
[2018-04-05 07:01] LABS: HEMATOCRIT 29.1 % (36.0-47.0); HEMOGLOBIN 9.1 g/dl (12.0-15.5); MEAN CORPUSCULAR HEMOGLOBIN 30.6 pg (27.0-33.0); MEAN CORPUSCULAR HGB CONC 31.3 g/dl (32.0-36.5); PLATELET COUNT, AUTOMATED 357 10^3/uL (150-450); RED BLOOD COUNT 2.97 10^6/uL (4.00-5.40); RED CELL DISTRIBUTION WIDTH 13.4 % (11.5-14.5); WHITE BLOOD COUNT 4.8 10^3/uL (4.0-10.0)
[2018-04-05 07:12] LABS: POSITIVE MORPH POS FLAG
[2018-04-05 07:13] LABS: ADD MANUAL DIFFER YES; DIFF SLIDE NUMBER 5
[2018-04-05 07:41] LABS: ATYPICAL LYMPH 2 % (0-5); EOSINOPHILS 3 % (0-5); LYMPHOCYTES 24 % (16-52); MONOCYTES 4 % (0-8); NEUTROPHILS 67 % (35-75); PLATELET ESTIMATE NORMAL (NORMAL)
[2018-04-05 07:42] LABS: ROULEAUX 1+
[2018-04-05 07:43] LABS: HYPOCHROMASIA 1+
[2018-04-05] MEDS: LISINOPRIL 20 MG TAB PO (08:55)
[2018-04-05] MEDS: CARVedilol 3.125 MG TAB PO (08:56)
[2018-04-05] MEDS: FERROUS GLUCONATE 324 MG TAB PO (08:56)
[2018-04-05] MEDS: PANTOPRAZOLE 40MG TAB (PROTONIX) PO (08:56)
[2018-04-05] MEDS: ALLOPURINOL 300 MG TAB PO (08:56)
[2018-04-05] MEDS: METHOCARBAMOL 750 MG TAB PO (08:56)
[2018-04-05] MEDS: MIRALAX *UNIT DOSE* 17GM PACKET PO (08:57)
[2018-04-05] MEDS: SENOKOT S TAB PO (08:57)
== END 2018-04-05 12:30 | disposition home or self-care (01) | DRG 862 ==
LOC: M PM&R 04-04 10:53
DX: S82.841D Displaced bimalleolar fracture of right lower leg, subsequent encounter for closed fracture with routine healing (principal); G93.40 Encephalopathy, unspecified; D62 Acute posthemorrhagic anemia; S22.42XD Multiple fractures of ribs, left side, subsequent encounter for fracture with routine healing; S52.571D Other intraarticular fracture of lower end of right radius, subsequent encounter for closed fracture with routine healing; K59.00 Constipation, unspecified; I10 Essential (primary) hypertension; E03.9 Hypothyroidism, unspecified; M10.9 Gout, unspecified; M54.9 Dorsalgia, unspecified; Z98.84 Bariatric surgery status; Z90.710 Acquired absence of both cervix and uterus; Z90.49 Acquired absence of other specified parts of digestive tract; Z87.891 Personal history of nicotine dependence; Z79.899 Other long term (current) drug therapy; V49.50XD Passenger injured in collision with unspecified motor vehicles in traffic accident, subsequent encounter; Y92.410 Unspecified street and highway as the place of occurrence of the external cause; Y93.89 Activity, other specified